=== PATIENT | female | born 1995 | race Caucasian/White ===

== ENCOUNTER 2017-04-08 16:26 | Observation (INO) ==
--- NOTE | 2017-04-08 16:44 | OB/GYN Progress Note ---
Date of Encounter: 04/08/17 Time of Encounter: 16:42 - Assessment and Plan (1) 39 weeks gestation of Current Visit: Yes Status: Acute (2) Encounter for suspected PROM, with rupture of membranes not found Current Visit: Yes Status: Acute Speculum exam shows thick white vaginal discharge, negative pooling, negative nitrazine, negative ferning. e (3) Uterine contractions during Current Visit: Yes Status: Acute Cervical remains unchanged on serial exams. Discharged home with labor, and went to return to triage precautions. Patient verbalizes understanding Subjective - Subjective Interval history: 39+0 weeks gestation presents to triage with complaints of contractions and leaking of fluid. Patient states over the past couple day she feels she has been leaking fluid, unsure if her bag spann have broken, patient states the fluid is clear. Patient states during today she has been having contractions sometimes 5-6 in an hour that are she is unable to walk or talk through. Reports good movement, denies vaginal bleeding Antepartum ROS: loss of fluid, movement normal, contractions, no vaginal bleeding Objective - Exam FHR: auscultation normal FHR comments: Baseline 150 Abdomen: Present: normal appearance, soft, gravid Uterus: Present: normal Cervical dilation: 3-4/75/-1
[2017-04-08 17:41] LABS: Amphetamine Screen,Urine Negative ng/mL (Cutoff=1000); Barbiturate Screen,Urine Negative ng/mL (Cutoff=200); Benzodiazepines Screen,Urine Negative ng/mL (Cutoff=200); Cannabinoid Screen,Urine Negative ng/mL (Cutoff = 50); Cocaine Screen,Urine Negative ng/mL (Cutoff= 300); Opiate Screen,Urine Negative ng/mL (Cutoff=300); Phencyclidine Screen,Urine Negative ng/mL (Cutoff=25)
== END 2017-04-08 19:10 | disposition home or self-care (01) ==
LOC: 1NENULAB
PROVIDERS: ADMIT Advanced Practice Midwife; ATTEND Advanced Practice Midwife

== ENCOUNTER 2017-04-11 10:39 | Inpatient (IN) ==
[2017-04-11] MEDS ORDERED: Famotidine 20 MG/2 ML VIAL IVP PRN (10:57)
[2017-04-11] MEDS ORDERED: *HR* Nalbuphine 20 MG/ML AMPUL IVP PRN (10:57)
[2017-04-11] MEDS ORDERED: Ondansetron 4 MG/2 ML VIAL IVP PRN (10:57)
[2017-04-11] MEDS ORDERED: Naloxone 0.4 MG/ML INJ IVP PRN (10:57)
[2017-04-11] MEDS ORDERED: Penicillin G Potassium 5,000,000 UNIT in 0.9 % Sodium Chloride Mini Bag 100 ML IVPB ONE (10:59)
[2017-04-11] MEDS ORDERED: Ringers Solution, Lactated 1,000 ML IVC SCH (11:00)
[2017-04-11 11:20] LABS: Basophils # 0.1 K/mcL (0.0-0.2); Basophils % 0.3 %; Eosinophils # 0.1 K/mcL (0.0-0.6); Eosinophils % 0.4 %; Hematocrit 35.8 % (35.3-44.9); Hemoglobin 11.7 g/dL (11.5-15.4); Immature Granulocytes % 1.3 % (0-4); Lymphocytes # 1.9 K/mcL (0.6-4.6); Lymphocytes % 10.7 %; Mean Corpuscular HGB Conc 32.7 g/dL (31.6-35.5); Mean Corpuscular Hemoglobin 26.9 pg (28.0-33.3); Mean Corpuscular Volume 82.3 fL (83.0-100.0); Mean Platelet Volume 11.2 fL (9.4-12.4); Monocytes # 1.2 K/mcL (0.0-1.3); Monocytes % 6.7 %; Neutrophils # 14.6 K/mcL (1.6-8.9); Platelet Count 302 K/mcL (140-400); Red Blood Count 4.35 M/mcL (3.82-4.97); Red Cell Distribution Width 13.6 % (11.5-14.5); Segmented Neutrophils % 80.6 %
[2017-04-11 11:28] LABS: Amphetamine Screen,Urine Negative ng/mL (Cutoff=1000); Barbiturate Screen,Urine Negative ng/mL (Cutoff=200); Benzodiazepines Screen,Urine Negative ng/mL (Cutoff=200); Cannabinoid Screen,Urine Negative ng/mL (Cutoff = 50); Cocaine Screen,Urine Negative ng/mL (Cutoff= 300); Opiate Screen,Urine Negative ng/mL (Cutoff=300); Phencyclidine Screen,Urine Negative ng/mL (Cutoff=25)
--- NOTE | 2017-04-11 11:38 | OB/GYN History & Physical ---
Date of Encounter: 04/11/17 Time of Encounter: 11:45 Assessment and Plan (1) 39 weeks gestation of Current visit: Yes Status: Acute admit to labor and delivery (2) Rupture of membranes with clear amniotic fluid Current visit: Yes Status: Acute Patient receives appropriate antenatral care with CNM Admit for IOL VSS Epidural when requested Anticipate for Discussed with DEE Barlow (3) Non-stress test reactive on surveillance Current visit: Yes Status: Acute Baseline 135 bpm Moderate variability Category I Contractions: irritability Continue to monitor FHT (4) Uterine contractions during Current visit: Yes Status: Acute (5) Positive GBS test Current visit: Yes Status: Acute GBS propholaxis per protocol. History of Present Illness Chief complaint: Active Labor HPI: Ms. Johnson is a 21 year old female at 39 weeks and 3 days who presents to labor and delivery in active labor. She follows the Midwives for care. Reports ROM at 9:30am with contractions every few minutes. Denies vaginal bleeding. Patient's was uncomplicated. Patient was last seen as an outpatient yesterday. She denies nausea, vomiting, diarrhea, SOB, CP, headaches. Blood type = O+ Hep B = Nonreactive HIV = Nonreactive Treponema Pallidum Ab = Negative Rubella IgG Ab = Positive Varicella IgG Ab = Negative GBS = positive Past Med Surg Social Fam HX - Past Medical History Source: patient Medical history: no medical history Psychiatric history: no psych history - Past Surgical History Surgical History: no surgical history - Social History Smoking Status: Never smoker Smokeless Tobacco Status: No Alcohol use: none Drug use: none Activity Level: Independent ambulation Recent Out of Country Travel Within the Last 8 Weeks: No Exposure or Possible Exposure to Illness During Travel: No - Family History Father Family Member Ethnicity: Non- Living Status: Still Living Hx Family Cardiac Disorders: No Hx Family Respiratory Disorders: No Hx Family Cancer: No Hx Family GI Disorders: No Hx Family Endocrine Disorder: Yes (diabetes) Hx Family Neuromuscular Disorders: No Hx Family Neurologic Disorders: No Hx Family HEENT Disorders: No Hx Family Autoimmune Disorders: No Obstetrical History - Pregnancies : 2 Para: 1 Term: 1 : 0 Ab's: 0 Livin Medications and Allergies Vit/Iron Fumarate/FA [ Tablet] 1 tab PO DAILY 04/11/17 [History ] 3 Allergy/AdvReac Type Severity Reaction Status Date / Time codeine Allergy Rash Verified 02/09/15 17:03 [email or web address] [From Mucinex] Allergy Rash Verified 02/09/15 17:03 Review of System OB - Constitutional Constitutional ROS IM: as per HPI Exam - Constitutional Constitutional: well developed, well nourished, moderate distress - HEENT HEENT: Normocephaly, Mucus Membranes Moist - Neck Neck exam: full ROM - Lungs Respiratory exam: CTAB - Cardiovascular Cardiovascular exam: RRR, +S1, +S2 - Abdomen Abdomen: Present: bowel sounds normal - Extremities Extremities exam: full ROM, radial pulses palpable and symmetrical Deep Tendon Reflex Grade: 2+ Normal - Cervix Dilation: 6 (per RN) Effacement: 100 Station: 0 - Uterus Uterus exam: Present: normal size (Fundus soft and non-tender) - Anus/Rectum Anus/Rectum: Present: normal perianal skin Results Result Diagrams: 04/11/17 11:13 All other labs normal. - VTE Reasons for not Prescribing Prophylaxis: Treatment not Indicated - Low risk for VTE
[2017-04-11] MEDS ORDERED: Oxytocin 20 units/ LR 1000 mL 20 UNIT/1,000 ML BAG IVC ONE (11:53)
[2017-04-11] MEDS ORDERED: Lidocaine -MPF 1% 2 ML VIAL ONE ×2 (12:06→12:09)
--- NOTE | 2017-04-11 15:21 | OB/GYN Procedure Note ---
Delivery - Delivery Date: 04/11/17 Provider: Conchis Cortés Intrapartum events: precipitous labor- <3hr Delivery induction: none Delivery monitor: external FHT, external uterine Anesthesia: local Estimated Blood Loss: 400 - Infant (s) Infant A Infant Delivery Date: 04/11/17 Delivery Time: 11:58 Presentation: vertex Position: OA Route of delivery: Gender: Female Viability: Viable Pounds: 9 Ounces: 0 Weight Gram: 4.095 kg at 1 minute: 9 at 5 mins: 9 Shoulder Dystocia: not encountered Specimens collected: cord blood Placenta: uterine exploration Cord: 3 umbilical vessels - Repair Episiotomy: none Laceration Description: Perineal - 1st Degree (repaired with 3-0 vicryl) - Complications Delivery complications: none - Disposition Mom disposition: stable in LDR disposition: stable in LDR - Comments Comments: Called to LDR, patient complete and feels like she needs to push. Patient placed in stirrups and prepped for vaginal delivery. Under maternal effort patient spontaneously delivered a viable female infant over a 1st degree perineal laceration. No nuchal cord, meconium or shoulder dystocia was encountered. was placed on maternal abdomen. Cord was clamped and cut after pulsation ceased. 1% lidocaine was used to anesthetize laceration for repair.1st degree perineal laceration was repaired with 3-0 vicryl. Patient tolerated well. Placenta delivered spontaneously and intact. FF U/2. Pericare provided. Both Mother and infant stable in LDR for 2 hour recovery.
[2017-04-11] MEDS ORDERED: Benzocaine/Menthol 56 GM AEROSOL SPRAY TP PRN (15:31)
[2017-04-11] MEDS ORDERED: Acetaminophen 325 MG TABLET PO PRN (15:31)
[2017-04-11] MEDS ORDERED: Oxytocin 20 units/ LR 1000 mL 20 UNIT/1,000 ML BAG IVC SCH (15:31)
[2017-04-11] MEDS ORDERED: Measles/Mumps/Rubella Vacc 0.5 ML VIAL SQ PRN (15:31)
[2017-04-11] MEDS ORDERED: Lanolin 7 G OINT...G. TP PRN (15:31)
[2017-04-11] MEDS ORDERED: *HR* HYDROcodone/Acet 5/325 mg TABLET PO PRN (15:31)
[2017-04-11] MEDS ORDERED: Penicillin G Potassium 2,500,000 UNIT in 0.9 % Sodium Chloride 100 ML IVPB SCH (16:00)
[2017-04-11] MEDS: Ibuprofen 600 MG TABLET PO PRN (18:10)
[2017-04-11] MEDS: miSOPROStol 100 MCG TABLET PO SCH (18:11)
[2017-04-12] MEDS: Ibuprofen 600 MG TABLET PO PRN (03:39)
[2017-04-12] MEDS: miSOPROStol 100 MCG TABLET PO SCH ×2 (03:41→08:14)
[2017-04-12 08:25] VITALS: BP 103/66
[2017-04-12] MEDS ORDERED: NON-FORMULARY MEDICATION 1 EACH EACH (Prenatal Vit/Iron Fumarate/Fa [Prenatal Tablet] 1 TA PO SCH (09:00)
[2017-04-12] MEDS ORDERED: Prenatal Vit/FA 1 EACH TABLET PO SCH (09:00)
--- NOTE | 2017-04-12 09:16 | Discharge Summary ---
Date of Encounter: 04/12/17 Time of Encounter: 09:13 - Discharge Diagnosis (1) Vaginal delivery Priority: Primary Status: Acute Comments: Pt reports she is feeling well and ready for discharge VSS Tolerating regular diet Voiding independently Passing flatus but no BM yet Lochia light well Ready for discharge from our care today but will stay in room to parent (2) Maternal varicella, non-immune Priority: Secondary Status: Acute (3) Positive GBS test Priority: Secondary Status: Acute (4) Breast feeding status of mother Priority: Secondary Status: Acute - Discharge Medications Prescriptions: Ibuprofen [Motrin] 600 mg PO Q6HR PRN #30 tablet PRN Reason: Cramping Docusate [Colace] 100 mg PO BID #30 capsule Home Medications: Vit/Iron Fumarate/FA [ Tablet] 1 tab PO DAILY 04/11/17 [History ] Acetaminophen [Tylenol] 650 mg PO Q6HR PRN tablet 04/12/17 [Rx] Benzocaine/Menthol Neligh [Dermoplast Neligh] 1 appl TP QID PRN aerosol 04/12/17 [Rx] Docusate [Colace] 100 mg PO BID #30 capsule 04/12/17 [Rx] Ibuprofen [Motrin] 600 mg PO Q6HR PRN #30 tablet 04/12/17 [Rx] Lanolin [Lansinoh] 1 appl TP TID PRN oint...g. 04/12/17 [Rx] Allergies/Adverse Reactions: 3 Allergy/AdvReac Type Severity Reaction Status Date / Time codeine Allergy Rash Verified 02/09/15 17:03 [email or web address] [From Mucinex] Allergy Rash Verified 02/09/15 17:03 Data Procedures and tests throughout hospitalization: Laboratory Tests 04/11/17 04/11/17 11:13 11:13 WBC 18.1 H RBC 4.35 Hgb 11.7 Hct 35.8 MCV 82.3 L MCH 26.9 L MCHC 32.7 RDW 13.6 Plt Count 302 MPV 11.2 Immature Gran % 1.3 Seg Neutrophils % 80.6 Lymphocytes % 10.7 Monocytes % 6.7 Eosinophils % 0.4 Basophils % 0.3 Neutrophils # 14.6 H Lymphocytes # 1.9 Monocytes # 1.2 Eosinophils # 0.1 Basophils # 0.1 Urine Opiates Screen Negative Ur Barbiturates Screen Negative Ur Phencyclidine Scrn Negative Ur Amphetamines Screen Negative U Benzodiazepines Scrn Negative Urine Cocaine Screen Negative U Marijuana (THC) Screen Negative Labs on day of discharge: Labs from last 24 hours 04/11/17 04/11/17 11:13 11:13 WBC 18.1 H RBC 4.35 Hgb 11.7 Hct 35.8 MCV 82.3 L MCH 26.9 L MCHC 32.7 RDW 13.6 Plt Count 302 MPV 11.2 Immature Gran % 1.3 Seg Neutrophils % 80.6 Lymphocytes % 10.7 Monocytes % 6.7 Eosinophils % 0.4 Basophils % 0.3 Neutrophils # 14.6 H Lymphocytes # 1.9 Monocytes # 1.2 Eosinophils # 0.1 Basophils # 0.1 Urine Opiates Screen Negative Ur Barbiturates Screen Negative Ur Phencyclidine Scrn Negative Ur Amphetamines Screen Negative U Benzodiazepines Scrn Negative Urine Cocaine Screen Negative U Marijuana (THC) Screen Negative Date of admission: 04/11/17 10:39 Primary care physician: Amanda Welch CNP Consults: 04/11/17 15:31 Consult to Reading Intervention Teacher [CONS] Routine Comment: Vaginal delivery, consult needed Discharging clinician: Denia Luong Anticipated date of discharge: 04/12/17 - Patient Status Disposition: Home, Self-Care Condition: Good Functional capacity at discharge: independent ambulation Overall status at discharge: patient is progressing back to baseline - Discharge Instructions Follow Up With: Amanda Welch CNP [Primary Care Provider] - Denia Luong [Advanced Practice Nurse] - - Diet and Activity Activity: increase activity as tolerated Diet: regular diet Hospital Course Reason for admission: active labor, IUP at term Delivery: Episiotomy: none Laceration: 1st degree Other procedures: none complications: none Discharge diagnosis: IUP at term delivered baby: female Time Attestation: Total time spent providing and/or coordinating discharge services: Time Spent: Less than 30 minutes Exam - Constitutional Vitals: Temp Pulse Resp BP Pulse Ox 98.0 F 88 16 103/66 96 04/12/17 07:40 04/12/17 07:40 04/12/17 07:40 04/12/17 07:40 04/12/17 07:40 General appearance IM: A&O X 3, pleasant, no acute distress - Respiratory Respiratory exam: Present: CTAB - Cardiovascular Cardiovascular exam IM: Present: RRR, +S1, +S2 - GI/Abdominal GI/Abdominal exam IM: normal bowel sounds, soft, no peritoneal signs - Rectal Rectal exam: deferred - Uterine Tone: Firm Uterus Position: 2 Fingers Below Umbilicus, Midline - Extremities Exam Extremities exam IM: Present: pedal edema, radial pulses palpable and symmetrical - Neurological Exam Neurological exam: alert, oriented X3 - Psychiatric Additional comments: Reports feeling mentally well and denies history of PPD
== END 2017-04-12 11:20 | disposition home or self-care (01) | DRG 775 ==
LOC: 1NENULAB → OBSVTOIN 10:39 → 1NENUOBS 15:12
PROVIDERS: ADMIT Advanced Practice Midwife; ATTEND Advanced Practice Midwife